=== PATIENT | male | born 1960 | race Caucasian/White ===

== ENCOUNTER 2020-04-13 19:05 | Emergency (ER) | payer BC ==
[~2020-04-13] VITALS: Ht 172.7 cm; Wt 102.3 kg
[2020-04-13 19:10] VITALS: TEMP 99.2
[2020-04-13 20:20] VITALS: BP 128/75; PULSE 73
== END 2020-04-13 20:10 | disposition home or self-care (01) ==
LOC: COL.ER 19:05
DX: S86.912A Strain of unspecified muscle(s) and tendon(s) at lower leg level, left leg, initial encounter (principal); R40.2410 Glasgow coma scale score 13-15, unspecified time; W11.XXXA Fall on and from ladder, initial encounter

== ENCOUNTER 2021-11-27 20:31 | Emergency (ER) | payer BC ==
[~2021-11-27] VITALS: Ht 172.7 cm; Wt 99.9 kg
[2021-11-27 20:37] VITALS: TEMP 97.9
[2021-11-27 21:07] LABS: BASO % 0.5 % (0.0-2.0); EOS # 0.3 K/mm3 (0.0-0.7); EOS % 3.1 % (0.0-4.0); GRAN # 4.8 K/mm3 (1.4-6.5); GRAN % 60.1 % (42.2-75.2); HEMATOCRIT 43.8 % (42.0-52.0); HEMOGLOBIN 15.5 g/dl (13.5-18.0); LYMPH # 2.2 K/mm3 (1.2-3.4); MEAN CELL VOLUME 90 fl (80.0-100.0); MEAN CORPUSCULAR HEMOGLOBIN 32 pg (27-31); MEAN CORPUSCULAR HGB CONC 35 g/dl (33.0-37.0); MEAN PLATELET VOLUME 9.3 fl (7.4-10.4); MONO # 0.6 K/mm3 (0.1-0.6); MONO % 7.8 % (1.7-9.3); PLATELET COUNT 182 K/mm3 (130-400); RED BLOOD COUNT 4.89 M/mm3 (4.20-5.60); REDCELL DISTRIBUTION WIDTH-CV 12.8 % (11.5-14.5)
[2021-11-27 21:26] LABS: ALANINE AMINOTRANSFERASE 24 U/L (0-55); ALBUMIN 4.1 gm/dL (3.4-4.8); ALKALINE PHOSPHATASE 71 U/L (40-150); ANION GAP 8 mmol/L (7-16); AST,SGOT 18 U/L (5-34); BLOOD UREA NITROGEN 20 mg/dL (8-26); CALCIUM 8.5 mg/dL (8.4-10.2); CARBON DIOXIDE 24 mmol/L (23-31); CHLORIDE 108 mmol/L (98-107); CREATININE, serum 0.78 mg/dL (0.72-1.25); GLUCOSE 100 mg/dL (70-99); POTASSIUM 3.9 mmol/L (3.5-4.5); SODIUM 140 mmol/L (136-145); TOTAL PROTEIN 6.6 gm/dL (6.2-8.1)
[2021-11-27 21:33] LABS: TROPONIN-I < 0.010 ng/mL (0.00-0.033)
[2021-11-27 21:46] LABS: BILIRUBIN,TOTAL 0.5 mg/dL (0.2-1.2)
[2021-11-27 21:51] VITALS: BP 139/84; PULSE 78
== END 2021-11-27 21:56 | disposition home or self-care (01) ==
LOC: COL.ER 20:31
PROVIDERS: Student in an Organized Health Care Education/Training Program
DX: R07.89 Other chest pain (principal); Z87.891 Personal history of nicotine dependence

== ENCOUNTER 2024-05-30 15:03 | Emergency (ER) | payer MEDICARE ==
[~2024-05-30] VITALS: Ht 172.7 cm; Wt 99.1 kg
[2024-05-30 15:12] VITALS: TEMP 98.9
[2024-05-30] MEDS ORDERED: NS 1,000 ML IV ONE (15:30)
[2024-05-30 15:52] LABS: COLLECTION METHOD CLEAN CATCH
[2024-05-30 15:58] LABS: BASO % 0.4 % (0.0-2.0); EOS # 0.1 K/mm3 (0.0-0.7); EOS % 1.3 % (0.0-4.0); GRAN # 8.6 K/mm3 (1.4-6.5); GRAN % 78.6 % (42.2-75.2); LYMPH # 1.5 K/mm3 (1.2-3.4); LYMPH % 13.4 % (20.0-51.0); MEAN CELL VOLUME 92 fl (80.0-100.0); MEAN CORPUSCULAR HGB CONC 35 g/dl (33.0-37.0); MEAN PLATELET VOLUME 9.6 fl (7.4-10.4); MONO # 0.6 K/mm3 (0.1-0.6); MONO % 5.7 % (1.7-9.3); PLATELET COUNT 182 K/mm3 (130-400); RED BLOOD COUNT 5.85 M/mm3 (4.20-5.60); REDCELL DISTRIBUTION WIDTH-CV 12.9 % (11.5-14.5)
[2024-05-30 15:59] LABS: MEAN CORPUSCULAR HEMOGLOBIN 32 pg (27-31)
[2024-05-30 16:04] LABS: PH 6.5 (5.0-8.5); URINE APPEARANCE CLEAR (CLEAR/HAZY); URINE BLOOD NEGATIVE (NEGATIVE); URINE COLOR YELLOW (YELLOW); URINE GLUCOSE NEGATIVE (NEGATIVE); URINE KETONE TRACE (NEGATIVE); URINE NITRATE NEGATIVE (NEGATIVE); URINE PROTEIN(semi-quant) TRACE (NEGATIVE)
[2024-05-30 16:19] LABS: ALBUMIN 3.8 g/dL (3.4-4.8); BILIRUBIN,TOTAL 0.4 mg/dL (0.2-1.2); CALCIUM 9.6 mg/dL (8.4-10.2); CREATININE, serum 0.87 mg/dL (0.72-1.25); POTASSIUM 4.1 mEq/L (3.5-4.5); TOTAL PROTEIN 6.7 g/dl (6.2-8.1)
[2024-05-30] MEDS ORDERED: Iohexol 300 - 100 ML VIAL IV ONE (16:40)
[2024-05-30] MEDS ORDERED: NS 100 ML IV SCH (16:40)
[2024-05-30 17:42] VITALS: BP 141/98; PULSE 105
== END 2024-05-30 17:46 | disposition home or self-care (01) ==
LOC: COL.ER 15:03
PROVIDERS: Physician Assistant
DX: R10.33 Periumbilical pain (principal)
CPT/HCPCS: J7030; Q9967